=== PATIENT | male | born 1965 | race Caucasian/White ===

== ENCOUNTER 2017-02-15 18:50 | Emergency (ER) | payer SELFPAY ==
[2017-02-15 19:02] VITALS: BP 146/95
[2017-02-15] MEDS ORDERED: Sodium Chloride 0.9% 10 ML Syringe FLUSH PRN (19:02)
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
--- NOTE | 2017-02-15 20:00 | CT ---
Head CT Technique: Multiple axial sections through the brain were obtained. Intravenous contrast was not utilized. Comparison: No previous intracranial imaging. Findings: Ventricles along with basal cisterns and sulci over the convexities are mildly prominent. No abnormal parenchymal densities are seen. No evidence of intracranial hemorrhage. No midline shift or mass effect is seen. Bone window settings were reviewed which shows soft tissue swelling within the left cheek and left periorbital region with soft tissue injury within the left periorbital region. No acute calvarial abnormality is seen. Impression: 1. Facial findings as noted above which will be further described on facial CT exam. 2. Mild generalized atrophy which is slightly more prominent than expected in a patient this age. 3. No acute intracranial abnormality is appreciated. Diagnostic code #3
--- NOTE | 2017-02-15 20:03 | CT ---
CT facial bones Technique: Multiple axial sections were obtained through the facial bones. Reconstructed coronal and sagittal images were obtained. Findings: Soft tissue injury is seen within the chin with superficial foreign bodies. Soft tissue injury appears to be present within the left periorbital region. Soft tissue swelling is noted within the left cheek. Minimal mucosal thickening is seen within the right maxillary sinus and superior left maxillary sinus which is felt to be incidental. No air-fluid levels are seen within the paranasal sinuses. No facial bone fracture is identified. Impression: 1. Soft tissue findings as noted above. No acute bony abnormality is identified. Diagnostic code #3
--- NOTE | 2017-02-15 20:15 | CT ---
CT cervical spine Technique: Multiple axial sections were obtained from above C1 inferiorly to the top of T2. Reconstructed sagittal and coronal images were reviewed. Findings: Slight degenerative change is scattered within the spine. Mastoid sinuses and middle ear cavities is seen are clear. Posterior skull base is intact. Vertebral bodies and posterior arches are intact. No fracture is seen. No bony central or bony neural foraminal stenosis is seen. No abnormal subluxation is seen on the reconstructed sagittal images. Impression: 1. Mild scattered degenerative change. 2. Nothing acute is seen on CT study of the cervical spine. Diagnostic code #2
[2017-02-15] MEDS ORDERED: Lidocaine 1% with EPINEPHrine 1:100,000 20 ML MDV INJECT ONE ×2 (20:19→20:20)
[2017-02-15] MEDS ORDERED: Erythromycin Base 0.5% Ophth Oint 1 GM Tube EYELF ONE (21:48)
[2017-02-15] MEDS ORDERED: Cephalexin 500 MG Cap PO ONE (21:56)
--- NOTE | 2017-02-16 09:12 | OR ---
DATE OF OPERATION: 02/15/2017 SURGEON: Ap Ye MD PREOPERATIVE DIAGNOSIS: Traumatic laceration of the left upper eyelid and chin. POSTOPERATIVE DIAGNOSIS: Traumatic laceration of the left upper eyelid and chin. OPERATION PERFORMED: Repair of lacerations in the emergency room under local anesthetic, 1% Xylocaine with epinephrine. FINDINGS: Upper eyebrow and eyelid laceration on the left, which measured 10 cm in total. It involved the avulsing portion of the upper eyelid, which was left at the scene of the accident and avulsing the eyelid and the orbicularis oculi from the orbicularis palpebrarum. In the eye itself, there is no vision disturbance, no lack of muscle motion, and the eyelid motions were intact. The eyelid itself was not involved. The lacrimal gland was also not damaged, nor were the lateral attachments of the eye, the canthus, lateral and medial epicanthus. The chin laceration was measured 6 cm across. It was dirty and involved, and it was cleansed and debrided sharply and then repaired with simple interrupted sutures. DESCRIPTION OF PROCEDURE: The patient was seen in the emergency room, and after informed consent was obtained, on the left eye, tissue around the eyebrow was prepped with Betadine, draped off in a sterile fashion. The 2 separate portions of the orbicularis oculi were then sutured together with interrupted 3-0 Vicryl suture. The lack of the eyebrow was compensated by advancing the portion of the eyebrow medially and bringing the upper eyelid to close the defect. This was done using interrupted 3-0 Vicryl suture. The skin was then closed with interrupted 4-0 Prolene suture. The small laceration along the lateral epicanthus was repaired with simple interrupted 4-0 Vicryl suture. The area was irrigated and good function of the eye was noted. Attention was then directed to the chin, which was cleansed with Betadine and anesthetized with 1% Xylocaine. It was then debrided sharply and the skin of the chin explored. No foreign bodies were noted and it did not extend into the oral cavity. It was then closed with interrupted 4-0 nylon suture. Patient instructed on wound care with bacitracin to his chin and his other abrasions and erythromycin ophthalmic ointment to the eyelid and to the eye lacerations. Instructions on wound care, and the patient will be followed up in the clinic. ANESTHESIA: ESTIMATED BLOOD LOSS: [id number] /[id number]
== END 2017-02-15 22:00 | disposition home or self-care (01) ==
LOC: JD.ED 18:50
DX: S01.112A Laceration without foreign body of left eyelid and periocular area, initial encounter (principal); S01.81XA Laceration without foreign body of other part of head, initial encounter; S50.812A Abrasion of left forearm, initial encounter; S50.811A Abrasion of right forearm, initial encounter; F17.210 Nicotine dependence, cigarettes, uncomplicated; V28.4XXA Motorcycle driver injured in noncollision transport accident in traffic accident, initial encounter; Y92.410 Unspecified street and highway as the place of occurrence of the external cause
CPT/HCPCS: 12014; 13152; 36415; 70450; 70486; 72125; 80053; 83690; 85025; 99285; A9270; G0480; J7050; 99284

== ENCOUNTER 2021-05-09 22:08 | Emergency (ER) | payer OTHER ==
[2021-05-09 22:24] VITALS: BP 135/84; PULSE 100
--- NOTE | 2021-05-09 22:35 | EDM.PDOC ---
ED HPI GENERAL MEDICAL PROBLEM - General Chief Complaint: Laceration Stated Complaint: [facility] Time Seen by Provider: 05/09/21 22:23 Source of Information: Reports: Patient, RN Notes Reviewed History Limitations: Reports: No Limitations - History of Present Illness INITIAL COMMENTS - FREE TEXT/NARRATIVE: Patient is a 56-year-old male who presents to the ER for evaluation of his facial injury. Patient was brought into the ER by [facility]. Patient was in his shop, and ended up tripping and striking the cement with his head. He states he did not fall far but this did cause enough trauma to create a rather large hematoma to his right eyebrow, with a few superficial abrasion/deeper laceration to the eyebrow. Patient does have some mild swelling/ecchymosis noted to the right upper eyelid. Not complaining of any blurred vision or double vision. Not complaining of any headaches, and has no pain anywhere else denying any pain in his neck. Patient states he was drinking quite a fair amount of alcohol tonight as well. Patient denies any other sick- like symptoms, fever/chills, cough/shortness of breath, nausea/vomiting/diarrhea. Headache Pain Score (Numeric/FACES): 1 - Related Data Allergies Allergy/AdvReac Type Severity Reaction Status Date / Time No Known Allergies Allergy Verified 05/09/21 22:24 Home Meds: Home Meds . [No Known Home Meds] 05/09/21 [History] Past Medical History - Past Health History Medical/Surgical History: Denies Medical/Surgical History Social & Family History - Tobacco Use Tobacco Use Status *Q: Current Every Day Tobacco User Years of Tobacco use: 30 Packs/Tins Daily: 1 - Caffeine Use Caffeine Use: Reports: Coffee - Alcohol Use Days Per Week of Alcohol Use: 7 Number of Drinks Per Day: 7 Total Drinks Per Week: 49 - Recreational Drug Use Recreational Drug Use: No ED ROS GENERAL - Review of Systems Review Of Systems: Comprehensive ROS is negative, except as noted in HPI. ED EXAM, SKIN/RASH Exam: See Below Exam Limited By: No Limitations General Appearance: Alert, WD/WN, No Apparent Distress Eye Exam: Right Eye: Periorbital Changes (hematoma to right upper eye lid/eyebrow), Bilateral Eye: EOMI, PERRL Ears: Normal External Exam, Normal Canal, Hearing Grossly Normal, Normal TMs Head: Normocephalic Respiratory/Chest: No Respiratory Distress, Lungs Clear, Normal Breath Sounds Cardiovascular: Normal Peripheral Pulses, Regular Rate, Rhythm, No Edema Neurological: Alert, Oriented, Normal Cognition, No Motor/Sensory Deficits Psychiatric: Normal Affect, Normal Mood Skin: Warm, Dry, Normal Color, No Rash, Wound/Incision (superficial abrasions to R eyebrow, with associated lacerations. Some bleeding mildly) ED SKIN PROCEDURES - Laceration/Wound Repair Right Brow Appearance: Superficial, Clean Distal NVT: Neuro & Vascular Intact Skin Prep: Chlorhexidine (Hibiciens), Saline Exploration/Debridement/Repair: Wound Explored, In a Bloodless Field, Explored to Base, No Foreign Material Found Closed with: Dermabond Lac/Wound length In cm: 1 Sterile Dressing Applied: Nurse Tetanus Status Addressed: Yes Complications: No Course - Vital Signs Last Recorded V/S: Last Vital Signs Temp 98.0 F 05/09/21 22:22 Pulse 100 05/09/21 22:22 Resp 15 05/09/21 22:22 BP 135/84 05/09/21 22:22 Pulse Ox 95 05/09/21 22:22 - Re-Assessments/Exams Free Text/Narrative Re-Assessment/Exam: 05/09/21 22:38 Patient presents to the ER for his facial trauma. He states he does not want sutures and I did offer do a head CT to rule out further injury and he denied this at this time as well. We did go ahead and cleanse the wound, and have dressed it topically with some Dermabond, this has provided pretty good hemostasis at this time. We will have the patient ice the area as much as possi ble over the next few days and take some Tylenol for ongoing pain management. He is to return to care if things seem to worsen. Departure - Departure Time of Disposition: 22:32 Disposition: Home, Self-Care 01 Condition: Good Clinical Impression: Head injury Qualifiers: Encounter type: initial encounter Qualified Code(s): S09.90XA - Unspecified injury of head, initial encounter Eyebrow laceration Qualifiers: Encounter type: initial encounter Laterality: right Qualified Code(s): S01.111A - Laceration without foreign body of right eyelid and periocular area, initial encounter - Discharge Information *PRESCRIPTION DRUG MONITORING PROGRAM REVIEWED*: No *COPY OF PRESCRIPTION DRUG MONITORING REPORT IN PATIENT MERLENE: No Instructions: Head Injury, Adult, [id number], Sutures, [place], or Adhesive Wound Closure, [id number] Forms: ED Department Discharge Additional Instructions: You have been evaluated in the ED for your laceration. Your wound was repaired with Dermabond, this is a medical grade skin adhesive, and should provide accurate closure of the wound and time to allow it to heal. This will end up dislodging itself, in a few days time. Please keep this area clean and dry, you may cleanse with regular soap and water. No vigorous scrubbing. Please try to avoid submerging the affected area in water for prolonged periods of time until the Dermabond wears off. Watch out for signs of infection like increased redness, swelling, pain at the laceration site, or if you should develop any fevers or chills. You do have a rather large hematoma to the area as well, do not be surprised if this should worsen over the next day or 2, get a little bit larger and then it should start getting better. You might even have a little bit more swelling a round your eye. I would recommend that you use ice packs to the area as much as tolerated to help relieve some of the swelling. You may take some Tylenol every 6 hours as needed for ongoing pain management. Please return to ED if your symptoms change or worsen. Sepsis Event Note (ED) - Focused Exam Vital Signs: Vital Signs Temp Pulse Resp BP Pulse Ox 05/09/21 22:22 98.0 F 100 15 135/84 95
== END 2021-05-09 22:42 | disposition home or self-care (01) ==
LOC: JD.ED 22:08
DX: S01.111A Laceration without foreign body of right eyelid and periocular area, initial encounter (principal); Z72.0 Tobacco use; W22.09XA Striking against other stationary object, initial encounter
CPT/HCPCS: 12011; 99284-25

== ENCOUNTER 2024-02-10 10:15 | Day surgery (SDC) | payer OTHER ==
[~2024-02-10 10:15] MED LIST: Lidocaine 1% 5 ML VIAL ONE; Sodium Chloride 0.9% 10 ML Syringe FLUSH PRN; Sodium Chloride 0.9% 10 ML Syringe FLUSH SCH
[2024-02-10] MEDS ORDERED: Propofol 200 MG/20 ML SDV ONE ×2 (10:16)
[2024-02-10] MEDS ORDERED: ceFAZolin 2 GM Vial ONE (10:16)
[2024-02-10] MEDS ORDERED: Sodium Chloride 0.9% 100 ML ONE (10:20)
[2024-02-10] MEDS ORDERED: dexmedeTOMIDine HCl 200 MCG/2 ML SDV ONE (10:21)
[2024-02-10] MEDS: Lactated Ringers 1,000 ML IV SCH (10:40)
[2024-02-10] MEDS: Albuterol/Ipratropium 3.0-0.5 MG/3 ML Neb Soln NEB ONE (11:20)
[2024-02-10] MEDS: EPINEPHrine 1 MG/ML SDV ONE (12:02)
[2024-02-10] MEDS: Bupivacaine 0.5% 30 ML SDV ONE (12:02)
[2024-02-10] MEDS ORDERED: fentaNYL 100 MCG/2 ML SDV IVPUSH PRN (12:06)
[2024-02-10] MEDS ORDERED: HYDROmorphone 0.5 MG/0.5 ML Syringe IVPUSH PRN (12:06)
[2024-02-10] MEDS ORDERED: Ondansetron 4 MG/2 ML SDV IVPUSH PRN (12:06)
[2024-02-10 13:37] VITALS: BP 117/84; PULSE 78
== END 2024-02-10 13:20 | disposition home or self-care (01) ==
LOC: JD.SDS 10:15
PROVIDERS: ATTEND Surgery
DX: L72.0 Epidermal cyst (principal); Z87.891 Personal history of nicotine dependence
CPT/HCPCS: 11404; J0171; J0665; J2704; J3490; J7120; 00300; J0690; J7620-GY

== ENCOUNTER 2024-11-12 10:17 | Emergency (ER) | payer OTHER ==
[2024-11-12] MEDS ORDERED: Naloxone 0.4 MG/ML SDV IVPUSH PRN (10:23)
[2024-11-12] MEDS: fentaNYL 100 MCG/2 ML SDV IVPUSH ONE ×4 (10:35→13:34)
[2024-11-12] MEDS: Lactated Ringers 1,000 ML IV ONE (10:35)
[2024-11-12] MEDS: fentaNYL 100 MCG/2 ML SDV ONE (10:35)
[2024-11-12] MEDS: Ondansetron 4 MG/2 ML SDV IVPUSH ONE (10:36)
[2024-11-12 10:44] LABS: BASOPHILS PERCENT AUTO 0.1 % (0.0-1.0); EOSINOPHILS PERCENT AUTO 0.3 % (0.0-6.0); HEMATOCRIT 27.4 % (42.0-52.0); HEMOGLOBIN 9.7 gm/dl (14.0-18.0); IMMATURE GRAN ABSOLUTE AUTO 0.07 K/mm3 (0.00-0.05); IMMATURE GRAN PERCENT AUTO 0.8 % (0.0-0.4); LYMPHOCYTES PERCENT AUTO 10.5 % (24.0-44.0); MEAN CORPUSCULAR HGB CONC 35.4 g/dl (32.0-36.0); MEAN CORPUSCULAR VOLUME 104.6 fl (83.0-99.0); MEAN PLATELET VOLUME 10.8 fl (9.4-12.4); MONOCYTES ABSOLUTE AUTO 0.6 K/mm3 (0.0-0.8); MONOCYTES PERCENT AUTO 6.4 % (0.0-8.0); NEUTROPHILS ABSOLUTE AUTO 7.5 K/mm3 (1.8-7.7); NEUTROPHILS PERCENT AUTO 81.9 % (41.0-71.0); PLATELET COUNT,PLT 57 K/mm3 (150-400); RED BLOOD CELL COUNT 2.62 M/mm3 (4.52-5.90); WHITE BLOOD CELL COUNT,WBC 9.21 K/mm3 (3.9-11.3)
[2024-11-12] MEDS ORDERED: Sodium Chloride 0.9% 10 ML Syringe FLUSH ONE (10:48)
[2024-11-12] MEDS ORDERED: Iopamidol 612 MG/ML 100 ML Bottle IVPUSH ONE (10:48)
[2024-11-12 10:52] LABS: INR 1.12; PROTHROMBIN TIME 11.8 SECONDS (9.7-12.0)
[2024-11-12 11:06] LABS: A/G RATIO 1.2 (1-2); ALBUMIN 3.4 g/dl (3.4-5.0); ANION GAP 16.3 (5-15); BILIRUBIN TOTAL 0.7 mg/dL (0.2-1.0); BUN/CREATININE RATIO 12.5 (14-18); CALCIUM 8.2 mg/dL (8.5-10.1); CREATININE 0.8 mg/dL (0.7-1.3); EST CRCL DRUG DOSING (CG) 101.39 mL/min; MAGNESIUM 1.5 mg/dL (1.8-2.4); POTASSIUM,K 5.3 mEq/L (3.5-5.1); PROTEIN TOTAL,TP 6.3 g/dl (6.4-8.2)
[2024-11-12 11:25] LABS: SLIDE REVIEW ABNORMAL SMEAR
[2024-11-12] MEDS: Lidocaine 1% with EPINEPHrine 1:100,000 20 ML MDV ONE (12:18)
[2024-11-12] MEDS: Lidocaine 1% with EPINEPHrine 1:100,000 10 ML MDV INJECT ONE (12:18)
[2024-11-12] MEDS: ceFAZolin 2 GM Vial IVPUSH ONE (12:54)
[2024-11-12 13:33] LABS: APPEARANCE,URINE CLEAR (Clear); BILIRUBIN,URINE NEGATIVE (Negative); COLOR,URINE YELLOW (Yellow); GLUCOSE,URINE NEGATIVE (Negative); KETONES,URINE NEGATIVE (Negative); LEUKOCYTE ESTERASE,URINE NEGATIVE (Negative); NITRITE,URINE NEGATIVE (Negative); OCCULT BLOOD,URINE TRACE-INTACT (Negative); PH,URINE 5.5 (5.0-8.0); PROTEIN,URINE TRACE (Negative); UROBILINOGEN,URINE 0.2 (0.2-1.0)
[2024-11-12 13:48] LABS: BACTERIA,URINE FEW /hpf (FEW); EPITHELIAL CELLS,URINE 0-5 /hpf (0-5); FINE GRANULAR CASTS,URINE 0-5 /lpf (0-5); HYALINE CASTS,URINE 0-5 /lpf (0-5); MUCUS,URINE FEW /hpf (FEW); RBC,URINE 0-5 /hpf (0-5); WBC,URINE 0-5 /hpf (0-5)
[2024-11-12] MEDS: Ondansetron 4 MG/2 ML SDV ONE (14:17)
[2024-11-12 14:47] LABS: BARBITURATE SCREEN,URINE NEGATIVE (CUTOFF=200); BENZODIAZEPINES SCREEN,URINE NEGATIVE (CUTOFF=150); BUPRENORPHINE SCREEN,URINE NEGATIVE (CUTOFF=10); METHADONE SCREEN, URINE NEGATIVE (CUT0FF=200); METHAMPHETAMINES SCREEN, URINE NEGATIVE (CUTOFF=500); OXYCODONE SCREEN,URINE NEGATIVE (CUT0FF=100); THC SCREEN,URINE 20 NG/ML NEGATIVE (CUTOFF=50)
[2024-11-12 14:49] LABS: AMPHETAMINES SCREEN, URINE NEGATIVE (CUTOFF=500)
[2024-11-12 15:13] VITALS: BP 137/91; PULSE 114
== END 2024-11-12 14:25 ==
LOC: JD.ED 10:17
DX: S42.011A Anterior displaced fracture of sternal end of right clavicle, initial encounter for closed fracture (principal); S22.5XXA Flail chest, initial encounter for closed fracture; S22.082A Unstable burst fracture of T11-T12 vertebra, initial encounter for closed fracture; W17.89XA Other fall from one level to another, initial encounter
CPT/HCPCS: 32551; 36415; 51702; 70450; 71045; 71260; 72125; 74177; 80053; 80306; 80307; 81001; 82550; 82947; 83690; 83735; 84484; 85025; 85610; 86850; 86900; 86901; 93005; 96361; 96374; 96375; 96376; 99291; 99292; G0390; J0690; J2405; J3010; J7120